=== PATIENT | female | born 1975 | race Caucasian/White ===

== ENCOUNTER 2016-07-29 17:53 | Emergency (ER) | payer SELFPAY ==
[~2016-07-29] VITALS: Ht 149.9 cm; Wt 72.7 kg
[~2016-07-29 17:53] MED LIST: MMW SSP; MOTR200T PO; PENI500T PO
[2016-07-29 17:59] VITALS: BP 169/93; PULSE 82; RESP 16; TEMP 98.3; O2SAT 98
[2016-07-29] MEDS ORDERED: DICL50TA3 PO (19:13)
[2016-07-29] MEDS ORDERED: AMOX500C PO (19:13)
[2016-07-29] MEDS ORDERED: ACETAMINOPHEN/HYDROcodone 325 MG/5 MG TAB PO ONE (19:15)
[2016-07-29] MEDS ORDERED: AMOXICILLIN (TRIHYDRATE) 500 MG CAP PO ONE (19:15)
--- NOTE | 2016-07-29 19:19 | PD ---
HPI Chief Complaint: Oral / Dental Pain or Problem Time Seen by Provider: 19:16 Travel History International Travel<30 days: No Contact w/Intl Traveler<30days: No Traveled to known affect area: No History of Present Illness HPI 41-year-old female presents to emergency department with complains of left lower was some tooth pain. She states that this is been bothering her now for several days and is worse today. She's been taking [id number] ibuprofen without relief. She states she has not been sick recently. No alleviating or aggravating factors. PFSH Past Medical History Medical History: Denies Significant Hx Tetanus Vaccination: < 5 Years ?: Not LMP: 07/23/2016 Past Surgical History Narrative Surgical C-sections Social History Alcohol Use: Yes (OCCASIONALLY) Tobacco Use: No Substance Use: No Allergies-Medications (Allergen,Severity, Reaction): Coded Allergies: No Known Allergies (Unverified , 01/06/15) Reported Meds & Prescriptions Reported Meds & Active Scripts Active Diclofenac Sodium DR (Diclofenac Sodium) 50 Mg Tabdr 50 Mg PO TID Amoxicillin 500 Mg Cap 500 Mg PO TID Mmw 5-10 Ml SSP 5 TIMES A DAY MAGIC MOUTHWASH CONTAINS 1/3 VISCOUS LIDOCAINE, 1/3 MAALOX, AND 1/3 BENADRYL. Pen Vk (Penicillin V Potassium) 500 Mg Tab 500 Mg PO QID 7 Days Reported Ibuprofen 200 Mg Tab 200 Mg PO Q4H PRN Review of Systems Except as stated in HPI: all other systems reviewed are Neg Physical Exam Narrative GENERAL: Well-developed, well-nourished in no acute distress. Nontoxic appearing. HEAD: Normocephalic, atraumatic. EYES: Pupils equal round and reactive. Extraocular motions intact. No scleral icterus. No injection or drainage. ENT: TMs clear without erythema. The external auditory canals clear. Nose: clear . Posterior pharynx is pink and moist. No tonsillar edema or exudate. Uvula midline. Airway patent. The patient points to her left lower third molar. I see no obvious dental carry. No gingival erythema or edema. NECK: Trachea midline.Supple, nontender, moves head freely. No central bony tenderness or spasm. CARDIOVASCULAR: Regular rate and rhythm without murmurs, gallops, or rubs. RESPIRATORY: Clear to auscultation. Breath sounds equal bilaterally. No wheezes , rales, or rhonchi. GASTROINTESTINAL: Abdomen soft, non-tender, nondistended. No hepato-splenomegaly , or palpable masses. No guarding. EXTREMITIES: No clubbing, cyanosis, or edema. No joint tenderness, effusion, or edema noted. BACK: Nontender without deformity or crepitance. No flank tenderness. Data Data Last Documented VS Vital Signs Date Time Temp Pulse Resp B/P Pulse Ox O2 Delivery O2 Flow Rate FiO2 07/29/16 17:59 98.3 82 16 169/93 98 Room Air Orders Amoxicillin (Trimox) (07/29/16 19:15) Acetamin-Hydrocod 325-5 Mg ([place] 5-325 (07/29/16 19:15) MDM Medical Decision Making Medical Screen Exam Complete: Yes Emergency Medical Condition: Yes Medical Record Reviewed: Yes Differential Diagnosis MDM: Moderate Differential diagnoses: Dental abscess, dental caries, osteitis, cellulitis Narrative Course Patient is given amoxicillin 500 and Lortab 5 mg by mouth. This is dentalgia Diagnosis Primary Impression: Dentalgia Patient Instructions: Narcotic given in the ED, General Instructions Additional Instructions: Rest. Saltwater gargles. [place] oil on cotton balls. Amoxicillin and diclofenac. follow-up with a dentist as soon as possible. And return to the ER if any problems. Med/Other Pt SpecificInfo: Prescription(s) given Scripts Diclofenac Sodium DR 50 Mg Tabdr50 Mg PO TID #21 TAB Prov:Gavino Damon MD 07/29/16 Amoxicillin 500 Mg Tqi233 Mg PO TID #30 CAP Prov:Gavino Damon MD 07/29/16 Disposition: 01 DISCHARGE HOME Condition: Stable Prashant Palacios Jul 29, 2016 19:19
== END 2016-07-29 19:26 | disposition home or self-care (01) ==
LOC: NEPB 17:53
DX: K08.89 Other specified disorders of teeth and supporting structures (principal)
CPT/HCPCS: 99282

== ENCOUNTER 2017-03-22 20:11 | Emergency (ER) | payer BC ==
[~2017-03-22] VITALS: Ht 149.9 cm; Wt 77.0 kg
[~2017-03-22 20:11] MED LIST changes: +AMOX500C PO; +DICL50TA3 PO
[2017-03-22 20:14] VITALS: BP 159/78; PULSE 96; RESP 15; TEMP 98.7; O2SAT 98
[2017-03-22] MEDS ORDERED: KETOROLAC TROMETHAMINE 60 MG/2 ML (IM) VIAL IM ONE (21:15)
[2017-03-22] MEDS ORDERED: DIAZEPAM 5 MG TAB PO ONE (21:15)
--- NOTE | 2017-03-22 22:04 | PD ---
HPI Chief Complaint: Back/ Neck Pain or Injury Time Seen by Provider: 21:08 Travel History International Travel<30 days: No Contact w/Intl Traveler<30days: No Traveled to known affect area: No History of Present Illness HPI 41yo F with no significant PMH presents to the ED with c/o left lower back pain for a few days. States it started after she was moving furniture at home about 5 days ago. Pain is localized in left lower back and worst with movement. Pt works as a [employer] and has trouble moving residence. Denies any fever, IVDA, chest pain, sob, n/v, abdominal pain, focal weakness or numbness. Took ibuprofen earlier today with mild improvement of pain. PFSH Past Medical History Asthma: Yes Diminished Hearing: No Immunizations Current: Yes ?: Not LMP: 03/20/17 Past Surgical History Surgical History: No Previous Surgery Social History Alcohol Use: Yes (OCCASIONALLY) Tobacco Use: No Substance Use: No Allergies-Medications (Allergen,Severity, Reaction): Coded Allergies: tramadol (Verified Adverse Reaction, Mild, Nausea/Vomiting, 03/22/17) Reported Meds & Prescriptions Reported Meds & Active Scripts Active Ibuprofen 400 Mg Tab 400 Mg PO Q8H PRN Diclofenac Sodium DR (Diclofenac Sodium) 50 Mg Tabdr 50 Mg PO TID Amoxicillin 500 Mg Cap 500 Mg PO TID Review of Systems Except as stated in HPI: all other systems reviewed are Neg Physical Exam Narrative GENERAL: 41yo F in mild distress. SKIN: Focused skin assessment warm/dry. HEAD: Atraumatic. Normocephalic. CARDIOVASCULAR: Regular rate and rhythm. No murmur appreciated. RESPIRATORY: No accessory muscle use. Clear to auscultation. Breath sounds equal bilaterally. GASTROINTESTINAL: Abdomen soft, non-tender, nondistended. No rebound tenderness or guarding. BACK: No midline ttp thoracic or lumbar spine. +TTP left paraspinal L4-5. MUSCULOSKELETAL: No obvious deformities. No clubbing. No cyanosis. No edema. Negative straight leg test. NEUROLOGICAL: Awake and alert. No obvious cranial nerve deficits. Motor grossly within normal limits. Normal speech. PSYCHIATRIC: Appropriate mood and affect; insight and judgment normal. Data Data Last Documented VS Vital Signs Date Time Temp Pulse Resp B/P (MAP) Pulse Ox O2 Delivery O2 Flow Rate FiO2 03/22/17 20:14 98.7 96 15 159/78 (105) 98 Room Air Orders Orders Diazepam (Valium) (03/22/17 21:15) Ketorolac Inj (Toradol Inj) (03/22/17 21:15) MDM Medical Decision Making Medical Screen Exam Complete: Yes Emergency Medical Condition: Yes Differential Diagnosis Muscle strain vs. muscle spasm Narrative Course 41yo F with left lower back pain that seems musculoskeletal. No red flags. Pt given valium and toradol. Pt reevaluated at bedside and feels better. Pt requesting work note. Return precautions given. Diagnosis Primary Impression: Musculoskeletal back pain Patient Instructions: General Instructions Departure Forms: Tests/Procedures, Work Release Enter return to work date: Mar 24, 2017 Additional Instructions: Please follow up with your primary care physician in 3-7 days. Return to the ED if symptoms worsen. Med/Other Pt SpecificInfo: Prescription(s) given Scripts Ibuprofen (Ibuprofen) 400 Mg Tab 400 MG PO Q8H Y for PAIN SCALE 1 TO 4, #20 TAB 0 Refills Prov: Jaz Jessica DO 03/22/17 Disposition: 01 DISCHARGE HOME Condition: Stable Jaz Jessica DO Mar 22, 2017 22:04
[2017-03-22] MEDS ORDERED: IBUP400T20 PO (22:46)
== END 2017-03-22 22:58 | disposition home or self-care (01) ==
LOC: NEPD 20:11
DX: M79.1 Myalgia (principal); M54.5 Low back pain
CPT/HCPCS: 96372; 99284; J1885

== ENCOUNTER 2017-05-20 01:59 | Emergency (ER) | payer BC ==
[~2017-05-20] VITALS: Ht 149.9 cm; Wt 80.0 kg
[~2017-05-20 01:59] MED LIST changes: +AUGM875T3 PO; +IBUP1TAB5 PO; -MMW SSP; -MOTR200T PO; -PENI500T PO
[2017-05-20 02:02] VITALS: BP 170/91; PULSE 82; RESP 16; TEMP 97.9; O2SAT 99
--- NOTE | 2017-05-20 02:51 | PD ---
HPI Chief Complaint: Lump, Cyst, Hernia Time Seen by Provider: 02:36 Travel History International Travel<30 days: No Contact w/Intl Traveler<30days: No Traveled to known affect area: No History of Present Illness HPI Patient comes emergency Department complaining of a painful lump in her left breast that she first noticed 2 days ago. Patient states that she was given prescription for antibiotic, but does not seem to be helping. Patient reports taking ibuprofen with minimal relief of her symptoms. Patient states she does not do self breast exams regularly is uncertain if it was there previously or not. Denies any radiation of the pain. Denies any discharge, nipple retraction , or weight loss. Patient states she's not had a mammogram in the past. Pain is worse to palpation. Denies anything making it better. PFSH Past Medical History Asthma: Yes Diminished Hearing: No Immunizations Current: Yes ?: Not Past Surgical History Surgical History: No Previous Surgery Social History Alcohol Use: Yes (OCCASIONALLY) Tobacco Use: No Substance Use: No Allergies-Medications (Allergen,Severity, Reaction): Coded Allergies: tramadol (Verified Adverse Reaction, Mild, Nausea/Vomiting, 05/20/17) Reported Meds & Prescriptions Reported Meds & Active Scripts Active Augmentin (Amoxicillin-Clavulanate) 875-125 Mg Tab 1 Tab PO BID Review of Systems Except as stated in HPI: all other systems reviewed are Neg Physical Exam Narrative GENERAL: Well-developed, overly nourished, in no acute distress, and non-ill appearing. SKIN: Focused skin assessment warm and dry. Patient has a tender palpable lump noted in the left upper quadrant of the left breast. There is no erythematous, crepitus, fluctuation, or induration. Breast appears symmetrical without retraction or hair growth. HEAD: Atraumatic. Normocephalic. EYES: Pupils equal and round. EOMI. No scleral icterus. No injection or drainage. ENT: No nasal bleeding or discharge. Mucous membranes pink and moist. NECK: Trachea midline. Supple. No nuclear rigidity. RESPIRATORY: No accessory muscle use. No respiratory distress. MUSCULOSKELETAL: No obvious deformities. No clubbing. No cyanosis. No edema. Full range of motion. NEUROLOGICAL: Awake and alert. No obvious cranial nerve deficits. Motor grossly within normal limits. Normal speech. PSYCHIATRIC: Appropriate mood and affect; insight and judgment normal. Data Data Last Documented VS Vital Signs Date Time Temp Pulse Resp B/P (MAP) Pulse Ox O2 Delivery O2 Flow Rate FiO2 05/20/17 03:05 05/20/17 02:02 97.9 82 16 99 Room Air Orders Orders Mandatory Outpatient Referral (05/20/17 02:45) Ed Discharge Order (05/20/17 02:51) MDM Medical Decision Making Medical Screen Exam Complete: Yes Emergency Medical Condition: No Differential Diagnosis Abscess, cellulitis, cysts, cancer, fibroadenoma Narrative Course Patient in no obvious distress upon re-evaluation. Mandatory referral was placed to the breast Navigator. Any questions/concerns in reference to patient diagnosis/condition discussed and clarified prior to patient's discharge. Reinforced sheer importance of close follow up with patient's primary physician or primary care clinic. Instructed patient to return to ED immediately, if symptoms return/worsen. Patient showed understanding of above instructions. Further instructions and recommendations were detailed in discharge paperwork. Patient ambulated without difficulty out of ED at discharge. Diagnosis Primary Impression: Breast lump Referrals: [facility] Patient Instructions: Breast Mass (ED), General Instructions Additional Instructions: Follow-up with your primary care physician and/or bulk folder next week for further evaluation. Use [id number] Tylenol and/or ibuprofen as needed for pain. Follow instructions on the packaging. Return to the emergency department if symptoms get worse. Disposition: 01 DISCHARGE HOME Condition: Stable Deric Monsalve May 20, 2017 02:51
== END 2017-05-20 03:09 | disposition home or self-care (01) ==
LOC: NEPD 01:59
DX: N63.20 Unspecified lump in the left breast, unspecified quadrant (principal); J45.909 Unspecified asthma, uncomplicated; Z88.5 Allergy status to narcotic agent
CPT/HCPCS: 99283

== ENCOUNTER 2017-06-15 00:23 | Emergency (ER) | payer BC ==
[~2017-06-15] VITALS: Ht 149.9 cm; Wt 80.0 kg
[~2017-06-15 00:23] MED LIST changes: -AMOX500C PO; -DICL50TA3 PO; -IBUP1TAB5 PO
[2017-06-15 00:26] VITALS: BP 142/95; PULSE 104; RESP 20; TEMP 98.5; O2SAT 99
[2017-06-15] MEDS ORDERED: ALBUAER3 INH (00:43)
[2017-06-15] MEDS ORDERED: ZITHTAB PO (00:43)
[2017-06-15] MEDS ORDERED: AZITHROMYCIN 250 MG TAB PO ONE (00:45)
--- NOTE | 2017-06-15 00:49 | PD ---
HPI Chief Complaint: Respiratory Symptoms Time Seen by Provider: 00:42 Travel History International Travel<30 days: No Contact w/Intl Traveler<30days: No Traveled to known affect area: No History of Present Illness HPI 42-year-old female presents to emergency department with complaints of cough and congestion since Tuesday. She has had subjective fever and chills, earache, sore throat, shortness of breath or wheezing. She denies any nausea vomiting. No bowel pain or diarrhea. No dysuria or frequency. Symptoms are moderate. Worse with coughing. No alleviating factors. PFSH Past Medical History Narrative Medical History of asthma as a child Asthma: Yes Diminished Hearing: No Immunizations Current: Yes Tetanus Vaccination: < 5 Years ?: Not Past Surgical History Surgical History: No Previous Surgery Social History Alcohol Use: Yes (OCCASIONALLY) Tobacco Use: No Substance Use: No Allergies-Medications (Allergen,Severity, Reaction): Coded Allergies: tramadol (Verified Adverse Reaction, Mild, Nausea/Vomiting, 06/15/17) Reported Meds & Prescriptions Reported Meds & Active Scripts Active Proair Hfa 8.5 GM Inh (Albuterol Sulfate) 90 Mcg/Act Aer 2 Puff INH Q4-6H PRN 108 mcg/actuation Zithromax Z-Perry (Azithromycin) 250 Mg Dspk 250 Mg PO DIRECTED 500 MG (2 tabs) day 1, then 1 tab days 2-5. Augmentin (Amoxicillin-Clavulanate) 875-125 Mg Tab 1 Tab PO BID Review of Systems General / Constitutional: Positive: Fever, Chills Eyes: No: Visual changes HENT: Positive: Sore Throat, Rhinorrhea, Congestion, Earache, No: Headaches Cardiovascular: No: Chest Pain or Discomfort Respiratory: Positive: Cough, Shortness of Breath Gastrointestinal: No: Nausea, Vomiting, Abdominal Pain Genitourinary: No: Dysuria Musculoskeletal: No: Pain Skin: No Rash Neurologic: No: Weakness Psychiatric: No: Depression Endocrine: No: Polydipsia Hematologic/Lymphatic: No: Easy Bruising Physical Exam Narrative GENERAL: Well-developed, well-nourished in no acute distress. Nontoxic appearing. HEAD: Normocephalic, atraumatic. EYES: Pupils equal round and reactive. Extraocular motions intact. No scleral icterus. No injection or drainage. ENT: TMs clear without erythema. The external auditory canals clear. Nose: clear . Posterior pharynx is pink and moist. No tonsillar edema or exudate. Uvula midline. Airway patent. NECK: Trachea midline.Supple, nontender, moves head freely. No central bony tenderness or spasm. CARDIOVASCULAR: Regular rate and rhythm without murmurs, gallops, or rubs. RESPIRATORY: Clear to auscultation. Breath sounds equal bilaterally. No wheezes , rales, or rhonchi. GASTROINTESTINAL: Abdomen soft, non-tender, nondistended. No hepato-splenomegaly , or palpable masses. No guarding. EXTREMITIES: No clubbing, cyanosis, or edema. No joint tenderness, effusion, or edema noted. BACK: Nontender without deformity or crepitance. No flank tenderness. Data Data Last Documented VS Vital Signs Date Time Temp Pulse Resp B/P (MAP) Pulse Ox O2 Delivery O2 Flow Rate FiO2 06/15/17 00:26 98.5 104 20 142/95 (111) 99 Room Air Orders Orders Ed Discharge Order (06/15/17 00:42) Azithromycin (Zithromax) (06/15/17 00:45) MDM Medical Decision Making Medical Screen Exam Complete: Yes Emergency Medical Condition: Yes Medical Record Reviewed: Yes Differential Diagnosis MDM: High Differential diagnoses: Pneumonia, bronchitis, URI, asthma, RAD, legionnaire's disease, SARS, ARDS, influenza, bronchiolitis, RSV,PE,CHF Narrative Course Patient is given Zithromax 500 mg by mouth. Patient's exam reveals no localizing symptoms of pneumonia. Diagnosis Primary Impression: bronchitis Additional Impression: reactive airway disease Patient Instructions: General Instructions Departure Forms: Tests/Procedures, Work Release Special Instructions: No work 2 days Scripts Albuterol 8.5 GM Inh (Proair Hfa 8.5 GM Inh) 90 Mcg/Act Aer 2 PUFF INH Q4-6H Y for SHORTNESS OF BREATH, #1 INHALER 0 Refills 108 mcg/actuation Prov: Ilia Perez MD 06/15/17 Azithromycin (Zithromax Z-Perry) 250 Mg Dspk 250 MG PO DIRECTED for Infection, #1 DSPK 0 Refills 500 MG (2 tabs) day 1, then 1 tab days 2-5. Prov: Ilia Perez MD 06/15/17 Disposition: 01 DISCHARGE HOME Condition: Stable Keelen,Prashant T. PA Jun 15, 2017 00:49
== END 2017-06-15 01:07 | disposition home or self-care (01) ==
LOC: NEPD 00:23
DX: J45.909 Unspecified asthma, uncomplicated (principal); Z79.899 Other long term (current) drug therapy; Z88.5 Allergy status to narcotic agent
CPT/HCPCS: 99284

== ENCOUNTER 2017-07-16 19:19 | Emergency (ER) | payer BC ==
[~2017-07-16] VITALS: Ht 157.5 cm; Wt 68.0 kg
[~2017-07-16 19:19] MED LIST changes: +ALBUAER3 INH; +ZITHTAB PO
[2017-07-16 19:21] VITALS: BP 166/80; PULSE 110; RESP 20; TEMP 98.2; O2SAT 99
[2017-07-16] MEDS ORDERED: DOXY100C PO (20:22)
--- NOTE | 2017-07-16 20:23 | PD ---
HPI Chief Complaint: Cold / Flu Symptoms Time Seen by Provider: 19:53 Travel History International Travel<30 days: No Contact w/Intl Traveler<30days: No Traveled to known affect area: No History of Present Illness HPI Ms. Oliva a 42-year-old very pleasant female presents emergency department for evaluation of loss of voice, cough in congestion which has resolved but have been present for the past 4 days prior to presentation. Denies any fevers nausea vomiting diarrhea constipation. States symptoms have been gradually getting worse, otherwise healthy, associated signs symptoms and context as above. PFSH Past Medical History Asthma: Yes Diminished Hearing: No Immunizations Current: Yes Tetanus Vaccination: Unknown Influenza Vaccination: No ?: Unknown LMP: 07/01/17 Social History Alcohol Use: Yes (OCCASIONALLY) Tobacco Use: No Substance Use: No Allergies-Medications (Allergen,Severity, Reaction): Coded Allergies: tramadol (Verified Adverse Reaction, Mild, Nausea/Vomiting, 07/16/17) Reported Meds & Prescriptions Reported Meds & Active Scripts Active Azithromycin 250 Mg Tab 250 Mg PO DIRECTED Take 2 tabs (500 mg) on day 1 then 1 tab daily x 4 days. Prednisone 20 Mg Tab 40 Mg PO DAILY Take 40 mg (2 tablets) daily for 5 days Review of Systems Except as stated in HPI: all other systems reviewed are Neg Physical Exam Narrative GENERAL: Well-nourished, well-developed patient. SKIN: Focused skin assessment warm/dry. HEAD: Normocephalic. Atraumatic EYES: No scleral icterus. No injection or drainage. ENT: TMs clear bilaterally, oropharynx clear moist. NECK: Supple, trachea midline. No JVD or lymphadenopathy. CARDIOVASCULAR: Regular rate and rhythm without murmurs, gallops, or rubs. RESPIRATORY: Breath sounds equal bilaterally. No accessory muscle use. GASTROINTESTINAL: Abdomen soft, non-tender, nondistended. MUSCULOSKELETAL: No cyanosis, or edema. BACK: Nontender without obvious deformity. No CVA tenderness. Data Data Last Documented VS Vital Signs Date Time Temp Pulse Resp B/P (MAP) Pulse Ox O2 Delivery O2 Flow Rate FiO2 07/16/17 21:00 07/16/17 19:21 98.2 110 20 99 Room Air Orders Orders Ceftriaxone Inj (Rocephin Inj) (07/16/17 20:30) Azithromycin (Zithromax) (07/17/17 09:00) Metronidazole (Flagyl) (07/16/17 20:30) Ondansetron Odt (Zofran Odt) (07/16/17 20:30) Ed Discharge Order (07/16/17 20:46) [facility] Medical Decision Making Medical Screen Exam Complete: Yes Emergency Medical Condition: Yes Differential Diagnosis URI, laryngitis, pneumonia unlikely, severe bacterial illness highly unlikely. Narrative Course Patient room to the emergency department, empiric steroids for symptom control, discussed other symptomatic management, antibiotic prescription if symptoms no better in a week to fill in start taking then. Discussed follow-up with her primary care physician Diagnosis Primary Impression: Laryngitis Additional Instructions: Start taking azithromycin in one week if you're still having symptoms. Med/Other Pt SpecificInfo: Prescription(s) given Scripts Azithromycin (Azithromycin) 250 Mg Tab 250 MG PO DIRECTED for Infection, #6 TAB 0 Refills Take 2 tabs (500 mg) on day 1 then 1 tab daily x 4 days. Prov: Gavino Damon MD 07/16/17 Prednisone (Prednisone) 20 Mg Tab 40 MG PO DAILY, #10 TAB 0 Refills Take 40 mg (2 tablets) daily for 5 days Prov: Gavino Damon MD 07/16/17 Disposition: 01 DISCHARGE HOME Condition: Stable Gavino Damon MD Jul 16, 2017 20:23
[2017-07-16] MEDS ORDERED: ONDANSETRON ODT 4 MG TAB PO ONE (20:30)
[2017-07-16] MEDS ORDERED: cefTRIAXone 250 MG VIAL IM ONE (20:30)
[2017-07-16] MEDS ORDERED: metroNIDAZOLE 500 MG TAB PO ONE (20:30)
[2017-07-16] MEDS ORDERED: AZIT250T3 PO (20:45)
[2017-07-16] MEDS ORDERED: PRED20 PO (20:45)
[2017-07-17] MEDS ORDERED: AZITHROMYCIN 250 MG TAB PO SCH (09:00)
== END 2017-07-16 21:04 | disposition home or self-care (01) ==
LOC: NEPD 19:19
DX: J04.0 Acute laryngitis (principal); J45.909 Unspecified asthma, uncomplicated
CPT/HCPCS: 99284

== ENCOUNTER 2017-07-29 13:27 | Emergency (ER) | payer BC ==
[~2017-07-29] VITALS: Ht 149.9 cm; Wt 80.0 kg
[~2017-07-29 13:27] MED LIST changes: -ALBUAER3 INH; -AUGM875T3 PO; +AZIT250T3 PO; +PRED20 PO; -ZITHTAB PO
[2017-07-29 13:30] VITALS: BP 135/89; PULSE 87; RESP 22; TEMP 98.1; O2SAT 99
[2017-07-29 14:36] LABS: BACTERIA, URINE OCC /hpf; BILIRUBIN, URINE NEG (NEG); BLOOD, URINE NEG (NEG); GLUCOSE,URINE NEG (NEG); KETONE, URINE NEG (NEG); MUCUS URINE FEW /lpf (OCC); NITRITE,URINE NEG (NEG); SQUAMOUS EPITHELIAL CELL URINE 3 /hpf (0-5); URINE COLOR YELLOW (YELLW/STRAW); URINE LEUKOCYTE ESTERASE SMALL (NEG)
[2017-07-29 14:39] LABS: AUTOMATED NEUTROPHIL # 5.6 TH/MM3 (1.8-7.7); BASOPHIL # 0.1 TH/MM3 (0-0.2); BASOPHIL % 0.8 % (0.0-2.0); EOSINOPHIL # 0.1 TH/MM3 (0-0.4); EOSINOPHIL % 1.6 % (0.0-4.0); HEMATOCRIT 40.4 % (35.0-46.0); HEMOGLOBIN 13.8 GM/DL (11.6-15.3); LYMPH % 21.5 % (9.0-44.0); LYMPHOCYTE # 1.7 TH/MM3 (1.0-4.8); MEAN CELL VOLUME 89.3 FL (80.0-100.0); MEAN CORPUSCULAR HEMOGLOBIN 30.6 PG (27.0-34.0); MEAN CORPUSCULAR HGB CONC 34.3 % (32.0-36.0); MEAN PLATELET VOLUME 9.8 FL (7.0-11.0); MONO % 5.6 % (0.0-8.0); MONOCYTE # 0.4 TH/MM3 (0-0.9); NEUT % 70.5 % (16.0-70.0); PLATELET COUNT 267 TH/MM3 (150-450); RED BLOOD COUNT 4.52 MIL/MM3 (4.00-5.30); WHITE BLOOD COUNT 7.9 TH/MM3 (4.0-11.0)
[2017-07-29 14:49] LABS: ALT (GPT) 22 U/L (10-53)
[2017-07-29 14:51] LABS: ALKALINE PHOSPHATASE 76 U/L (45-117); TOTAL BILIRUBIN ADULT 0.4 MG/DL (0.2-1.0); TOTAL PROTEIN 7.8 GM/DL (6.4-8.2)
[2017-07-29 14:55] LABS: ALBUMIN 3.9 GM/DL (3.4-5.0); AST (GOT) 20 U/L (15-37); BICARBONATE 25.5 MEQ/L (21.0-32.0); BLOOD UREA NITROGEN 11 MG/DL (7-18); CHLORIDE 107 MEQ/L (98-107); CREATININE 0.71 MG/DL (0.50-1.00); GLOMERULAR FILTRATION RATE 91 ML/MIN (>89); GLUCOSE,RANDOM 96 MG/DL (74-106); SODIUM (NA) 139 MEQ/L (136-145)
--- NOTE | 2017-07-29 15:33 | PD ---
HPI Chief Complaint: Cold / Flu Symptoms Time Seen by Provider: 15:32 Travel History International Travel<30 days: No Contact w/Intl Traveler<30days: No Traveled to known affect area: No History of Present Illness HPI 42-year-old female presents emergency department with almost 3 week history of ongoing upper respiratory type symptoms and generalized malaise. Patient was seen here 2 weeks ago and treated for laryngitis with azithromycin and some prednisone. She states she never really got better. She comes in today with ongoing headache, sinus pressure, postnasal drip, nausea, and occasional diarrhea. Patient has occasional productive cough but no significant chest congestion or wheezing. Patient has had no recent vomiting. She denies significant belly pain or urinary symptoms. She denies vaginal symptoms. She is allergic to tramadol. PFSH Past Medical History Asthma: Yes Diminished Hearing: No Immunizations Current: Yes ?: Not LMP: 07/23/17 Past Surgical History Surgical History: No Previous Surgery Social History Alcohol Use: Yes (OCCASIONALLY) Tobacco Use: No Substance Use: No Allergies-Medications (Allergen,Severity, Reaction): Coded Allergies: tramadol (Verified Adverse Reaction, Mild, Nausea/Vomiting, 07/29/17) Reported Meds & Prescriptions Reported Meds & Active Scripts Active No Active Prescriptions or Reported Medications Review of Systems Except as stated in HPI: all other systems reviewed are Neg General / Constitutional: Positive: Chills, No: Fever Eyes: No: Visual changes HENT: Positive: Headaches, Sore Throat, Rhinitis, Rhinorrhea, Congestion, No: Vertigo, Lightheadedness, Nosebleed (Itchy.), Neck Stiffness, Neck Pain, Dental Difficulties, Earache Cardiovascular: No: Chest Pain or Discomfort Respiratory: Positive: Cough, No: Shortness of Breath, Wheezing, Sneezing, Pleuritic Pain Gastrointestinal: Positive: Nausea, Diarrhea, No: Vomiting, Abdominal Pain Genitourinary: No: Urgency, Frequency (Mild occasional), Dysuria Musculoskeletal: No: Pain Skin: No Rash Neurologic: No: Weakness Psychiatric: No: Depression Endocrine: No: Polydipsia Hematologic/Lymphatic: No: Easy Bruising Physical Exam Narrative GENERAL: Patient appears ill but not septic. SKIN: Warm and dry. Slight pallor. Normal turgor. HEAD: Atraumatic. Normocephalic. EYES: Pupils equal and round. No scleral icterus. No injection or drainage. ENT: No nasal bleeding or discharge. Mucous membranes pink and moist. TMs are clear bilaterally. Posterior pharynx is unremarkable. Patient has moderate maxillary frontal sinus tenderness with palpation both on the left than the right but more on the left. TMs are dull bilaterally with no injection. NECK: Trachea midline. Supple and nontender. CARDIOVASCULAR: Regular rate and rhythm. RESPIRATORY: No accessory muscle use. Clear to auscultation. Breath sounds equal bilaterally. GASTROINTESTINAL: Abdomen soft, non-tender, nondistended. Hepatic and splenic margins not palpable. MUSCULOSKELETAL: Extremities without clubbing, cyanosis, or edema. No obvious deformities. NEUROLOGICAL: Awake and alert. No obvious cranial nerve deficits. Motor grossly within normal limits. Five out of 5 muscle strength in the arms and legs. Normal speech. PSYCHIATRIC: Appropriate mood and affect; insight and judgment normal. Data Data Last Documented VS Vital Signs Date Time Temp Pulse Resp B/P (MAP) Pulse Ox O2 Delivery O2 Flow Rate FiO2 07/29/17 13:30 98.1 87 22 135/89 (104) 99 Room Air Orders Orders Complete Blood Count With Diff (07/29/17 13:56) Comprehensive Metabolic Panel (07/29/17 13:56) Urinalysis - C+S If Indicated (07/29/17 13:56) Influenzae A/B Antigen (07/29/17 13:57) Labs Laboratory Tests Test 07/29/17 14:20 07/29/17 14:22 White Blood Count 7.9 TH/MM3 Red Blood Count 4.52 MIL/MM3 Hemoglobin 13.8 GM/DL Hematocrit 40.4 % Mean Corpuscular Volume 89.3 FL Mean Corpuscular Hemoglobin 30.6 PG Mean Corpuscular Hemoglobin Concent 34.3 % Red Cell Distribution Width 13.0 % Platelet Count 267 TH/MM3 Mean Platelet Volume 9.8 FL Neutrophils (%) (Auto) 70.5 % Lymphocytes (%) (Auto) 21.5 % Monocytes (%) (Auto) 5.6 % Eosinophils (%) (Auto) 1.6 % Basophils (%) (Auto) 0.8 % Neutrophils # (Auto) 5.6 TH/MM3 Lymphocytes # (Auto) 1.7 TH/MM3 Monocytes # (Auto) 0.4 TH/MM3 Eosinophils # (Auto) 0.1 TH/MM3 Basophils # (Auto) 0.1 TH/MM3 CBC Comment AUTO DIFF Differential Comment AUTO DIFF CONFIRMED Blood Urea Nitrogen 11 MG/DL Creatinine 0.71 MG/DL Random Glucose 96 MG/DL Total Protein 7.8 GM/DL Albumin 3.9 GM/DL Calcium Level 9.0 MG/DL Alkaline Phosphatase 76 U/L Aspartate Amino Transf (AST/SGOT) 20 U/L Alanine Aminotransferase (ALT/SGPT) 22 U/L Total Bilirubin 0.4 MG/DL Sodium Level 139 MEQ/L Potassium Level 3.9 MEQ/L Chloride Level 107 MEQ/L Carbon Dioxide Level 25.5 MEQ/L Anion Gap 7 MEQ/L Estimat Glomerular Filtration Rate 91 ML/MIN Urine Color YELLOW Urine Turbidity HAZY Urine pH 7.0 Urine Specific [place] 1.016 Urine Protein NEG mg/dL Urine Glucose (UA) NEG mg/dL Urine Ketones NEG mg/dL Urine Occult Blood NEG Urine Nitrite NEG Urine Bilirubin NEG Urine Urobilinogen LESS THAN 2.0 MG/DL Urine Leukocyte Esterase SMALL Urine RBC 1 /hpf Urine WBC 1 /hpf Urine Squamous Epithelial Cells 3 /hpf Urine Bacteria OCC /hpf Urine Mucus FEW /lpf Microscopic Urinalysis Comment CULT NOT INDICATED MDM Medical Decision Making Medical Screen Exam Complete: Yes Emergency Medical Condition: Yes Medical Record Reviewed: Yes Differential Diagnosis Sinusitis. Postnasal drip. Cough. Narrative Course Patient is felt to have sinusitis secondary to recent viral illness. Patient was treated with amoxicillin 875 twice daily 10 days. Patient also given Flonase nasal spray 2 sprays each nostril daily. Patient continues cough medicine of choice. Recommend frequent sinus irrigation with saline. Patient is to use Tylenol and ibuprofen as needed. Patient to rest and push fluids. Work note until Tuesday is given. Diagnosis Primary Impression: Sinusitis, acute Qualified Codes: J01.40 - Acute pansinusitis, unspecified Referrals: Primary Care Physician Patient Instructions: General Instructions, Sinusitis (ED) Departure Forms: Work Release Enter return to work date: Aug 01, 2017 Additional Instructions: Patient is felt to have sinusitis secondary to recent viral illness. Patient was treated with amoxicillin 875 twice daily 10 days. Patient also given Flonase nasal spray 2 sprays each nostril daily. Patient continues cough medicine of choice. Recommend frequent sinus irrigation with saline. Patient is to use Tylenol and ibuprofen as needed. Patient to rest and push fluids. Work note until Tuesday is given. Med/Other Pt SpecificInfo: Prescription(s) given Scripts No Active Prescriptions or Reported Meds Disposition: 01 DISCHARGE HOME Condition: Foreign [place] Jul 29, 2017 15:33
[2017-07-29] MEDS ORDERED: FLUT1SPR5 EACH NARE (16:13)
[2017-07-29] MEDS ORDERED: AMOX875T PO (16:13)
== END 2017-07-29 16:38 | disposition home or self-care (01) ==
LOC: NEPD 13:27
DX: J01.40 Acute pansinusitis, unspecified (principal); J45.909 Unspecified asthma, uncomplicated; Z88.8 Allergy status to other drugs, medicaments and biological substances
CPT/HCPCS: 80053; 81001; 85025; 87804; 99283